=== PATIENT | female | born 1995 | race Caucasian/White ===

== ENCOUNTER 2020-11-30 18:30 | Emergency (ER) | payer OTHER ==
[2020-11-30] MEDS ORDERED: ONDANSETRON 4 MG/2 ML VIAL ONE (20:28)
[2020-11-30] MEDS ORDERED: ACETAMINOPHEN 500 MG TAB ONE (20:28)
[2020-11-30] MEDS ORDERED: FAMOTIDINE 20 MG/2 ML VIAL IV ONE (20:28)
[2020-11-30] MEDS ORDERED: NA CHLORIDE 0.9% 1,000 ML ONE (20:28)
[2020-11-30 20:46] LABS: Basophils % 0.3 % (0-1.3); Hematocrit 39.5 % (36.0-45.0); Lymphocytes % 29.7 % (15.3-44.8); MPV 8.7 fL (7.6-11.3); RBC Red Blood Cell Count 4.65 M/uL (3.86-4.86)
[2020-11-30 20:47] LABS: Protime INR 1.22
--- NOTE | 2020-11-30 20:48 | RAD REPORT ---
EXAM DESCRIPTION: Priscilla Single View11/30/2020 8:35 pm CLINICAL HISTORY: Cough COMPARISON: none FINDINGS: Mild bilateral pulmonary opacities are present. The heart is mildly enlarged IMPRESSION: Mild bilateral pulmonary opacities suspicious for pneumonia
[2020-11-30 20:56] LABS: ALT/SGPT 31 U/L (12-78); AST/SGOT 23 U/L (15-37); Albumin 3.6 g/dL (3.4-5.0); Alkaline Phosphatase 61 U/L (45-117); BUN Blood Urea Nitrogen 7 mg/dL (7-18); Bicarbonate 26 mmol/L (21-32); Bilirubin Direct 0.2 mg/dL (0-0.2); Bilirubin Total 0.5 mg/dL (0.2-1.0); Glucose Level 122 mg/dL (74-106); NT PRO-BNP 32 pg/mL (<125); Potassium 3.2 mmol/L (3.5-5.1); Protein, Total 8.4 g/dL (6.4-8.2); Sodium Level 139 mmol/L (136-145); Troponin (Emerg Dept Use Only) < 0.02 ng/mL (0.0-0.045)
[2020-11-30] MEDS ORDERED: METHYLPREDNISOLONE 125 MG INJ ONE (21:30)
[2020-11-30] MEDS ORDERED: POTASSIUM 25 MEQ EFFERV TAB ONE (21:30)
--- NOTE | 2020-11-30 21:57 | ER ---
Nurse's Notes [facility] Name: David Worthington Age: 25 yrs Sex: Female : 1995 Arrival Date: 11/30/2020 Time: 18:33 Bed 18 Private MD: Diagnosis: Other viral pneumonia;Nausea Presentation: 11/30 19:22 Chief complaint: Patient states: I was at [facility] this afternoon and got a covid swab. bp It came back positive. I came here to get re-checked. All they gave me was medication for nausea. I am having shortness of breath and abdominal. Coronavirus screen: Client presents with at least one sign or symptom that may indicate coronavirus-19. Standard/surgical mask placed on the client. Client reports previous positive COVID test result. Date of collection: November 30, 2020. Ebola Screen: No symptoms or risks identified at this time. Initial Sepsis Screen: Does the patient meet any 2 criteria? HR > 90 bpm. Yes Does the patient have a suspected source of infection? Yes: Productive cough/pneumonia. Risk Assessment: Do you want to hurt yourself or someone else? Patient reports no desire to harm self or others. Onset of symptoms was November 30, 2020. Transition of care: patient was not received from another setting of care. 19:22 Method Of Arrival: Ambulatory bp 19:22 Acuity: ANA 3 bp [employer]: 22:31 LMP N/A - ad5 Historical: - Allergies: 19:30 No Known Allergies; bp - Home Meds: 19:30 Albuterol Inhl [Active]; bp - PMHx: 19:30 Asthma; bp - PSHx: 19:30 None; bp - Immunization history:: Adult Immunizations up to date. - Social history:: Smoking status: Patient denies any tobacco usage or history of. Screenin:41 Abuse screen: Denies threats or abuse. Denies injuries from another. Nutritional ad5 screening: No deficits noted. Tuberculosis screening: No symptoms or risk factors identified. Fall Risk None identified. Assessment: 20:38 General: Appears ill, Behavior is calm, cooperative, appropriate for age. Pain: ad5 Complains of pain in body aches Pain currently is 5 out of 10 on a pain scale. Neuro: No deficits noted. Level of Consciousness is awake, alert, obeys commands, Oriented to person, place, time, situation, Appropriate for age Sustainability Communicator are equal bilaterally Moves all extremities. Gait is steady, Speech is normal, Facial symmetry appears normal. Cardiovascular: Reports fatigue, nausea, shortness of breath, vomiting, recent dx Covid, s/s since Tuesday this past week Denies chest pain, Heart tones S1 S2 present Capillary refill < 3 seconds Clubbing of nail beds is absent JVD is absent Patient's skin is warm and dry. Pulses are all present. Rhythm is regular. Respiratory: Reports shortness of breath at rest on exertion cough that is Airway is patent Trachea midline Respiratory effort is even, unlabored, Respiratory pattern is regular, symmetrical. GI: Bowel sounds present X 4 quads. Abd is soft and non tender Reports nausea, vomiting. : No deficits noted. EENT: No deficits noted. Derm: No deficits noted. Skin is pink, warm \T\ dry. Musculoskeletal: No deficits noted. 21:19 Reassessment: Patient appears in no apparent distress at this time. Patient and/or ad5 family updated on plan of care and expected duration. Pain level reassessed. Patient is alert, oriented x 3, equal unlabored respirations, skin warm/dry/pink. Patient states feeling better. Patient states symptoms have improved. Reassessment: Father remains at bedside. Pt denies needs at this time. Will continue to monitor. 22:03 Reassessment: Pt ambulated with portable pulse ox, O2 sat down to 90% on RA with HR to ad5 120. Provider notified. Pt reports improvement in s/s. Repositioned back into stretcher for comfort. Family remains at bedside. NAD noted, will continue to monitor. 22:30 Reassessment: Patient and/or family updated on plan of care and expected duration. Pain ad5 level reassessed. Patient is alert, oriented x 3, equal unlabored respirations, skin warm/dry/pink. Patient states feeling better. Patient states symptoms have improved. Vital Signs: 19:22 BP 139 / 75; Pulse 109; Resp 18; Temp 100.4(O); Pulse Ox 95% on R/A; Weight 108.86 kg bp (R); Height 5 ft. 9 in. (175.26 cm) (R); Pain 10/10; 20:40 BP 140 / 68; Pulse 102; Resp 18 S; Pulse Ox 94% on R/A; ad5 21:30 BP 134 / 68; Pulse 95; Resp 20 S; Pulse Ox 94% on R/A; ad5 22:04 Pulse 120; Resp 21 S; Pulse Ox 90% on R/A; ad5 22:30 BP 137 / 72; Pulse 101; Resp 20 S; Pulse Ox 94% on R/A; Pain 3/10; ad5 19:22 Body Mass Index 35.44 (108.86 kg, 175.26 cm) bp 22:04 ambulatory pulse ox per order, pt tolerated well ad5 ED Course: 18:33 Patient arrived in ED. ds1 19:28 Triage completed. bp 19:30 Arm band placed on right wrist. bp 19:48 Tino Rea PA is PHCP. cp 19:48 Tino Luther MD is Attending Physician. cp 19:53 Mark Webber is Primary Nurse. ad5 20:31 Basic Metabolic Panel Sent. ad5 20:35 XRAY Chest (1 view) In Process Unspecified. EDMS 20:41 Patient has correct armband on for positive identification. Bed in low position. Call ad5 light in reach. Side rails up X2. Adult w/ patient. nurse monitoring on. Pulse ox on. NIBP on. Door closed. Noise minimized. Warm blanket given. 20:41 No provider procedures requiring assistance completed. Initial lab(s) drawn, by me, ad5 sent to lab. Inserted saline lock: 20 gauge in right antecubital area, using aseptic technique. 22:27 Leoncio Mcmanus MD is Attending Physician. cp 22:31 IV discontinued, intact, bleeding controlled, No redness/swelling at site. Pressure ad5 dressing applied. Administered Medications: 20:31 Drug: Zofran (Ondansetron) 4 mg Route: IVP; Site: right antecubital; ad5 21:18 Follow up: Response: No adverse reaction; Nausea is decreased ad5 20:31 Drug: Pepcid (famotidine) 20 mg Route: IVP; Site: right antecubital; ad5 21:18 Follow up: Response: No adverse reaction; Nausea is decreased ad5 20:36 Drug: Tylenol 1000 mg Route: PO; ad5 20:36 Drug: NS 0.9% 1000 ml Route: IV; Rate: 1 bolus; Site: right antecubital; ad5 22:00 Follow up: IV Status: Completed infusion; IV Intake: 1000ml ad5 21:17 Drug: SOLU-Medrol (methylPrednisoLONE) 125 mg Route: IVP; Site: right antecubital; ad5 21:53 Follow up: Response: No adverse reaction ad5 22:06 Follow up: Response: No adverse reaction ad5 21:17 Drug: Potassium Effervescent Tablet 50 mEq Route: PO; ad5 21:53 Follow up: Response: No adverse reaction ad5 22:04 Follow up: Response: No adverse reaction ad5 22:04 Drug: Tessalon Perle (benzonatate) 200 mg Route: PO; ad5 Intake: 22:00 IV: 1000ml; Total: 1000ml. ad5 Outcome: 21:56 Discharge ordered by MD. cp 22:31 Discharged to home via wheelchair, with family. ad5 22:31 Condition: stable 22:31 Discharge instructions given to patient, family, Instructed on discharge instructions, follow up and referral plans. medication usage, Demonstrated understanding of instructions, follow-up care, medications. 22:32 Patient left the ED. ad5 Signatures: Dispatcher [employer] [facility] Leanne Leal dsTino Astorga PA PA cp Peltier, Brian, RN RN Mark Syed ad5
--- NOTE | 2020-11-30 21:57 | EDPHYS ---
Physician Documentation [facility] Name: David Worthington Age: 25 yrs Sex: Female : 1995 Arrival Date: 11/30/2020 Time: 18:33 Bed 18 Private MD: ED Physician Leoncio Mcmanus HPI: 11/30 20:10 This 25 yrs old Female presents to ER via Ambulatory with complaints of Covid cp +-Cough, Fever. 20:10 The patient has shortness of breath with light activity. cp 20:10 Onset: The symptoms/episode began/occurred gradually, 6 day(s) ago. Associated signs cp and symptoms: Pertinent positives: productive cough, fever, nausea, vomiting, Pertinent negatives: chest pain. Severity of symptoms: in the emergency department the symptoms are unchanged despite home interventions. 20:10 Patient reports being seen at [facility] earlier today and testing positive for cp COVID-19. Patient reports she is currently taking prescribed Medrol dose barrie and Z-barrie. [employer]: 22:31 LMP N/A - ad5 Historical: - Allergies: 19:30 No Known Allergies; bp - Home Meds: 19:30 Albuterol Inhl [Active]; bp - PMHx: 19:30 Asthma; bp - PSHx: 19:30 None; bp - Immunization history:: Adult Immunizations up to date. - Social history:: Smoking status: Patient denies any tobacco usage or history of. ROS: 20:15 Constitutional: Positive for fever, poor PO intake. cp 20:15 Eyes: Negative for injury, pain, redness, and discharge. cp 20:15 Cardiovascular: Negative for chest pain, edema, palpitations. cp 20:15 ENT: Negative for ear pain, sore throat, difficulty swallowing, difficulty handling cp secretions. 20:15 Respiratory: Positive for cough, "sounds productive", shortness of breath, on exertion. Negative for wheezing. 20:15 Abdomen/GI: Positive for abdominal pain, nausea and vomiting, Negative for diarrhea, constipation. 20:15 Back: Negative for radiated pain. 20:15 Neuro: Negative for altered mental status, headache, weakness. 20:15 All other systems are negative. Exam: 20:20 Constitutional: The patient appears in no acute distress, alert, awake, cp non-diaphoretic, non-toxic, well developed, well nourished, obese. 20:20 Head/Face: Normocephalic, atraumatic. cp 20:20 Eyes: Periorbital structures: appear normal, Conjunctiva: normal, no exudate, no injection, Sclera: no appreciated abnormality, Lids and lashes: appear normal, bilaterally. 20:20 ENT: External ear(s): are unremarkable, Nose: is normal, Mouth: Lips: moist, Oral mucosa: moist, Posterior pharynx: Airway: no evidence of obstruction, patent. 20:20 Neck: ROM/movement: is normal, is supple, no meningismus, no nuchal rigidity. 20:20 Chest/axilla: Inspection: normal, Palpation: is normal, no crepitus, no tenderness. 20:20 Cardiovascular: Rate: tachycardic, Rhythm: regular, Edema: is not appreciated, JVD: is not appreciated. 20:20 Respiratory: the patient does not display signs of respiratory distress, Respirations: labored breathing, is not present, intercostal retractions, are absent, splinting, is not noted, tachypnea, is not appreciated, Breath sounds: bronchial sounds, that are mild, are heard diffusely, decreased breath sounds, are not appreciated, stridor, is not appreciated, wheezing: is not appreciated. 20:20 Abdomen/GI: Inspection: abdomen appears normal, Bowel sounds: active, all quadrants, Palpation: soft, in all quadrants, mild abdominal tenderness, in all quadrants. 20:20 Back: pain, is absent, ROM is normal. 20:22 ECG was reviewed by the Attending Physician. cp Vital Signs: 19:22 BP 139 / 75; Pulse 109; Resp 18; Temp 100.4(O); Pulse Ox 95% on R/A; Weight 108.86 kg bp (R); Height 5 ft. 9 in. (175.26 cm) (R); Pain 10/10; 20:40 BP 140 / 68; Pulse 102; Resp 18 S; Pulse Ox 94% on R/A; ad5 21:30 BP 134 / 68; Pulse 95; Resp 20 S; Pulse Ox 94% on R/A; ad5 22:04 Pulse 120; Resp 21 S; Pulse Ox 90% on R/A; ad5 22:30 BP 137 / 72; Pulse 101; Resp 20 S; Pulse Ox 94% on R/A; Pain 3/10; ad5 19:22 Body Mass Index 35.44 (108.86 kg, 175.26 cm) bp 22:04 ambulatory pulse ox per order, pt tolerated well ad5 MDM: 19:49 Patient medically screened. cp 20:30 Differential diagnosis: asthma, pneumonia, pulmonary edema, Pulmonary Embolism Sepsis. cp 21:55 Data reviewed: vital signs, nurses notes, lab test result(s), EKG, radiologic studies, cp plain films. 21:55 Test interpretation: by ED physician or midlevel provider: ECG, plain radiologic cp studies. Counseling: I had a detailed discussion with the patient and/or guardian regarding: the historical points, exam findings, and any diagnostic results supporting the discharge/admit diagnosis, lab results, radiology results, to return to the emergency department if symptoms worsen or persist or if there are any questions or concerns that arise at home. Response to treatment: the patient's symptoms have markedly improved after treatment. 21:55 ED course: VSS. Patient resting comfortably in exam room. Patient appears non-toxic and cp no signs of respiratory distress. Will discharge to home for continued monitoring . 05 20:06 Order name: Basic Metabolic Panel cp 11/30 20:06 Order name: CBC with Diff cp / 21:41 Interpretation: Normal except: WBC 3.20; MN% 15.7. cp 05/ 20:06 Order name: LFT's; Complete Time: 20:57 cp /09 21:41 Interpretation: Normal except: TP 8.4; GLOB 4.8; A/G 0.8. cp / 20:06 Order name: Magnesium; Complete Time: 20:57 cp 05/09 20:06 Order name: NT PRO-BNP; Complete Time: 20:57 cp / 20:06 Order name: PT-INR; Complete Time: 20:57 cp / 20:06 Order name: Troponin (emerg Dept Use Only); Complete Time: 20:57 cp / 20:06 Order name: XRAY Chest (1 view); Complete Time: 20:57 cp / 20:06 Order name: CRP; Complete Time: 20:57 cp / 20:06 Order name: D-Dimer; Complete Time: 20:57 cp / 20:06 Order name: Basic Metabolic Panel; Complete Time: 20:57 EDMS 11/30 21:41 Interpretation: Normal except: K 3.2; GLUC 122; GFR 75; CA 8.4. cp 11/30 20:54 Order name: Manual Differential EDMS 11/30 20:04 Order name: Urine Dipstick-Ancillary (obtain specimen) cp 11/30 20:04 Order name: Urine Test (obtain specimen) cp 11/30 20:06 Order name: EKG; Complete Time: 20:07 cp 11/30 20:06 Order name: Cardiac monitoring; Complete Time: 20:36 cp 11/30 20:06 Order name: EKG - Nurse/Tech; Complete Time: 20:37 cp 11/30 20:06 Order name: IV Saline Lock; Complete Time: 20:37 cp 11/30 20:06 Order name: Labs collected and sent; Complete Time: 20:37 cp 11/30 20:06 Order name: O2 Per Protocol; Complete Time: 20:37 cp 11/30 20:06 Order name: O2 Sat Monitoring; Complete Time: 20:37 cp 11/30 21:05 Order name: Misc. Order: ambulate patient with pulse ox; Complete Time: 22:04 cp 11/30 21:51 Order name: PO challenge; Complete Time: 21:53 cp EC:22 Rate is 106 beats/min. Rhythm is regular. CA interval is normal. QRS interval is cp normal. QT interval is normal. T waves are Inverted in lead III. Interpreted by me. Reviewed by me. Administered Medications: 20:31 Drug: Zofran (Ondansetron) 4 mg Route: IVP; Site: right antecubital; ad5 21:18 Follow up: Response: No adverse reaction; Nausea is decreased ad5 20:31 Drug: Pepcid (famotidine) 20 mg Route: IVP; Site: right antecubital; ad5 21:18 Follow up: Response: No adverse reaction; Nausea is decreased ad5 20:36 Drug: Tylenol 1000 mg Route: PO; ad5 20:36 Drug: NS 0.9% 1000 ml Route: IV; Rate: 1 bolus; Site: right antecubital; ad5 22:00 Follow up: IV Status: Completed infusion; IV Intake: 1000ml ad5 21:17 Drug: SOLU-Medrol (methylPrednisoLONE) 125 mg Route: IVP; Site: right antecubital; ad5 21:53 Follow up: Response: No adverse reaction ad5 22:06 Follow up: Response: No adverse reaction ad5 21:17 Drug: Potassium Effervescent Tablet 50 mEq Route: PO; ad5 21:53 Follow up: Response: No adverse reaction ad5 22:04 Follow up: Response: No adverse reaction ad5 22:04 Drug: Tessalon Perle (benzonatate) 200 mg Route: PO; ad5 Disposition: 11/30/20 21:56 Discharged to Home. Impression: Other viral pneumonia, Nausea. - Condition is Stable. - Discharge Instructions: COVID-19. - Prescriptions for ivermectin 3 mg Oral tablet - take 6 tablet by ORAL route every other day x1 dose; 12 tablet. Tessalon Perles 100 mg Oral Capsule - take 2 capsule by ORAL route every 8 hours As needed; 30 capsule. Albuterol Sulfate 2.5 mg /3 mL (0.083 %) Inhalation Solution for Nebulization - inhale 1 unit by NEBULIZATION route every 8 hours As needed; 1 box. Prednisone 20 mg Oral Tablet - take 2 tablet by ORAL route once daily for 5 days then take 1 tablet daily by mouth for 5 days; 15 tablet. Zofran 4 mg Oral Tablet - take 1 tablet by ORAL route every 12 hours As needed; 20 tablet. - Medication Reconciliation Form, Thank You Letter, Antibiotic Education, Prescription Opioid Use form. - Follow up: Private Physician; When: 1 - 2 days; Reason: Worsening of condition. - Problem is new. - Symptoms have improved. Addendum: 12/16/2020 05:10 Co-signature as Attending Physician, Leoncio Mcmanus MD I agree with the assessment and t w4 plan of care. Signatures: Dispatcher [employer] [facility] Tino Rea PA PA cp Lukas Juarez RN RN Leoncio Avalos MD MD [id number] Mark Webber ad5 Corrections: (The following items were deleted from the chart) 11/30 21:41 21:41 Normal except: K 3.2; GLUC 122; GFR 75. cp cp 21:59 21:56 11/30/2020 21:56 Discharged to Home. Impression: Other viral pneumonia. Condition cp is Stable. Forms are Medication Reconciliation Form, Thank You Letter, Antibiotic Education, Prescription Opioid Use. Follow up: Private Physician; When: 1 - 2 days; Reason: Worsening of condition. Problem is new. Symptoms have improved. cp 22:32 21:59 11/30/2020 21:56 Discharged to Home. Impression: Other viral pneumonia; Nausea. ad5 Condition is Stable. Discharge Instructions: COVID-19. Prescriptions for ivermectin 3 mg Oral tablet - take 6 tablet by ORAL route every other day x1 dose; 12 tablet, Tessalon Perles 100 mg Oral Capsule - take 2 capsule by ORAL route every 8 hours As needed; 30 capsule, Albuterol Sulfate 2.5 mg /3 mL (0.083 %) Inhalation Solution for Nebulization - inhale 1 unit by NEBULIZATION route every 8 hours As needed; 1 box, Prednisone 20 mg Oral Tablet - take 2 tablet by ORAL route once daily for 5 days then take 1 tablet daily by mouth for 5 days; 15 tablet, Zofran 4 mg Oral Tablet - take 1 tablet by ORAL route every 12 hours As needed; 20 tablet. and Forms are Medication Reconciliation Form, Thank You Letter, Antibiotic Education, Prescription Opioid Use. Follow up: Private Physician; When: 1 - 2 days; Reason: Worsening of condition. Problem is new. Symptoms have improved. cp
[2020-11-30] MEDS ORDERED: BENZONATATE 100 MG CAP PO ONE (22:14)
[2020-11-30 22:36] LABS: Blood Morphology Comment NOT SEEN (NOT SEEN); Platelet Estimate ADEQ
[2020-11-30 23:00] VITALS: TEMP 100.4
[2020-11-30 23:06] VITALS: BP 137/72; O2SAT 94
== END 2020-11-30 22:32 | disposition home or self-care (01) ==
LOC: ER 18:30
DX: J12.89 Other viral pneumonia (principal); J45.909 Unspecified asthma, uncomplicated
CPT/HCPCS: 96361; 93005; 85025; 80048; 36415; 83735; 85610; 85379; 80076; 84484; 83880; 86140; 71045; 96375; 96374; 99284; J7030; J2930; J2405

== ENCOUNTER 2020-12-02 08:40 | Inpatient (IN) | payer OTHER ==
[2020-12-02 09:45] LABS: Basophils % 0.2 % (0-1.3); Hematocrit 39.9 % (36.0-45.0); Lymphocytes % 16.3 % (15.3-44.8); MPV 8.2 fL (7.6-11.3); RBC Red Blood Cell Count 4.69 M/uL (3.86-4.86)
[2020-12-02 09:53] LABS: Protime INR 1.17
--- NOTE | 2020-12-02 10:35 | RAD REPORT ---
EXAM DESCRIPTION: Priscilla Single View12/02/2020 9:50 am CLINICAL HISTORY: Shortness of breath COMPARISON: Nov 30 2020 FINDINGS: Mild bilateral pulmonary opacities without significant change. Heart appears mildly enlarged IMPRESSION: Mild bilateral pulmonary opacities probably pneumonia
[2020-12-02 10:59] LABS: ALT/SGPT 35 U/L (12-78); AST/SGOT 21 U/L (15-37); Alkaline Phosphatase 57 U/L (45-117); BUN Blood Urea Nitrogen 8 mg/dL (7-18); Bicarbonate 27 mmol/L (21-32); Glucose Level 117 mg/dL (74-106); Potassium 3.2 mmol/L (3.5-5.1); Sodium Level 142 mmol/L (136-145)
[2020-12-02 11:00] LABS: Albumin 3.5 g/dL (3.4-5.0); Bilirubin Direct 0.2 mg/dL (0-0.2); Bilirubin Total 0.5 mg/dL (0.2-1.0); Protein, Total 8.2 g/dL (6.4-8.2)
[2020-12-02 11:01] LABS: Lipase 122 U/L (73-393)
[2020-12-02 11:28] LABS: Ferritin 70.4 ng/mL (8-388)
[2020-12-02 11:31] LABS: Troponin (Emerg Dept Use Only) < 0.02 ng/mL (0.0-0.045)
--- NOTE | 2020-12-02 11:56 | EDPHYS ---
Physician Documentation [facility] Name: David Worthington Age: 25 yrs Sex: Female : 1995 Arrival Date: 12/02/2020 Time: 08:40 Bed 24 Private MD: ED Physician Gerard Mcarthur HPI: 12/02 09:32 This 25 yrs old Female presents to ER via Ambulatory with complaints of low kb O2. 09:32 The patient has shortness of breath at rest, with light activity. Onset: The kb symptoms/episode began/occurred 8 day(s) ago, and became worse today. Duration: The symptoms are continuous. The patient's shortness of breath is aggravated by exertion. Associated signs and symptoms: Pertinent positives: non-productive cough, fever. Severity of symptoms: At their worst the symptoms were moderate in the emergency department the symptoms are unchanged. The patient has not experienced similar symptoms in the past. The patient has been recently seen at the [facility] Emergency Department. Pt reports COVID symptoms started last Tuesday, tested positive here. Came in today for decreased oxygen saturation and shortness of breath. States oxygen decreased to 84% when walking today and goes back up to 90-93% at rest. 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 - Social history:: Smoking status: Patient denies any tobacco usage or history of. ROS: 09:30 ENT: Negative for injury, pain, and discharge, Cardiovascular: Negative for chest pain, kb palpitations, and edema, Abdomen/GI: Negative for abdominal pain, nausea, vomiting, diarrhea, and constipation. 09:30 Constitutional: Positive for body aches, chills, fatigue, fever, malaise. 09:30 Respiratory: Positive for cough, dyspnea on exertion, shortness of breath. 09:30 All other systems are negative. Exam: 09:30 Constitutional: This is a well developed, well nourished patient who is awake, alert, kb and in no acute distress. Head/Face: Normocephalic, atraumatic. ENT: Moist Mucous membranes Cardiovascular: Regular rate and rhythm with a normal S1 and S2. No gallops, murmurs, or rubs. No pulse deficits. Respiratory: Respirations even and unlabored. No increased work of breathing, no retractions or nasal flaring. Abdomen/GI: Soft, non-tender. No distention Skin: Warm, dry with normal turgor. Normal color. MS/ Extremity: Pulses equal, no cyanosis. Neurovascular intact. Full, normal range of motion. Neuro: Awake and alert, GCS 15, oriented to person, place, time, and situation. Moves all extremities. Normal gait. Psych: Awake, alert, with orientation to person, place and time. Behavior, mood, and affect are within normal limits. Vital Signs: 08:41 BP 99 / 60; Pulse 102; Resp 20 S; Temp 99.3(O); Pulse Ox 92% on R/A; Weight 108.86 kg aa5 (R); Height 5 ft. 9 in. (175.26 cm) (R); Pain 5/10; 10:31 BP 98 / 74; Pulse 90; Resp 18; Pulse Ox 97% 2 lpm ; tr6 11:48 Pulse Ox 93% ; tr6 08:41 Body Mass Index 35.44 (108.86 kg, 175.26 cm) aa5 11:48 RA while ambulating. pt went as low at 86%, slowly came up to 88% and maintained there. tr6 pt placed on 2L NC and came up to 97% MDM: 09:00 Patient medically screened. kb 09:30 Data reviewed: vital signs, nurses notes. Data interpreted: Pulse oximetry: on room air kb is 92 %. Interpretation: acceptable. 11:52 Counseling: I had a detailed discussion with the patient and/or guardian regarding: the kb historical points, exam findings, and any diagnostic results supporting the discharge/admit diagnosis, lab results, radiology results, the need for further work-up and treatment in the hospital. ED course: Pt had increased work of breathing and desaturation with ambulation to 86%. Pt placed on oxygen and sat came up to 97%. 11:59 Physician consultation: Marisabel VÁSQUEZ was contacted at 11:59, regarding kb admission, to the medical/surgical unit. and will see patient in ED. 12/02 09:00 Order name: Blood Culture Adult (2) kb 12/02 09:00 Order name: BMP; Complete Time: 11:32 kb 12/02 09:00 Order name: C-Reactive Protein; Complete Time: 11:32 kb 12/02 09:00 Order name: CBC with Diff; Complete Time: 09:54 kb 12/02 09:00 Order name: D-Dimer; Complete Time: 10:12 kb 12/02 09:00 Order name: Ferritin; Complete Time: 11:32 kb 12/02 09:00 Order name: Lactate; Complete Time: 10:12 kb 12/02 09:00 Order name: LFT's; Complete Time: 11:32 kb 12/02 09:00 Order name: Lipase; Complete Time: 11:32 kb 12/02 09:00 Order name: Procalcitonin; Complete Time: 10:39 kb 12/02 09:00 Order name: PT-INR; Complete Time: 10:12 kb 12/02 09:00 Order name: Ptt, Activated; Complete Time: 10:12 kb 12/02 09:00 Order name: Troponin (emerg Dept Use Only); Complete Time: 11:32 kb 12/02 09:00 Order name: CXR XRAY; Complete Time: 10:37 kb 12/02 18:47 Order name: Potassium EDMS 12/03 04:09 Order name: CBC with Automated Diff EDMS 12/03 06:50 Order name: Comprehensive Metabolic Panel EDMS 12/03 06:50 Order name: C-Reactive Protein EDMS 12/03 06:50 Order name: Magnesium EDMS 12/03 06:50 Order name: Ferritin EDMS 12/04 04:37 Order name: CBC with Automated Diff EDMS 12/04 04:49 Order name: Basic Metabolic Panel EDMS 12/04 04:49 Order name: C-Reactive Protein EDMS 12/04 04:49 Order name: Magnesium EDMS 12/04 04:49 Order name: Ferritin EDMS 12/04 04:52 Order name: Procalcitonin EDMS 12/04 05:56 Order name: Urinalysis EDMS 12/04 06:06 Order name: Urine Microscopic Only EDMS 12/04 13:31 Order name: Sputum Culture EDIL 12/02 09:00 Order name: EKG; Complete Time: 09:01 kb 12/02 09:00 Order name: Cardiac monitoring; Complete Time: :27 kb 12/02 09:00 Order name: Droplet/Contact Precautions; Complete Time: 09:27 kb 12/02 09:00 Order name: EKG - Nurse/Tech; Complete Time: 10:21 kb 12/02 09:00 Order name: IV Start; Complete Time: :28 kb 12/02 09:00 Order name: Labs collected and sent; Complete Time: :28 kb 12/02 09:00 Order name: O2 Per Protocol; Complete Time: :28 kb 12/02 09:00 Order name: O2 Sat Monitoring; Complete Time: : kb 12/02 11:33 Order name: Misc. Order: ambulate pt and check o2 sat; Complete Time: 11:42 kb 12/02 12:42 Order name: Chest For Pe Angio; Complete Time: 13:21 EDIL 12/04 07:30 Order name: [facility] Administered Medications: 11:46 Drug: Potassium Chloride 40 mEq Route: PO; tr6 22:12 Not Given (Physician Discretion): SOLU-Medrol (methylPrednisoLONE) 125 mg IVP once iw Disposition: 12/04 22:49 Co-signature as Attending Physician, Gerard Mcarthur MD. rn Disposition: 12/02/20 11:56 Hospitalization ordered by Gualberto Mcarthur for Observation. Preliminary diagnosis are Coronavirus infection, unspecified, Viral pneumonia, unspecified, Hypoxia. - Bed requested for Intensive Care Unit. - Status is Observation. bb - Condition is Stable. - Problem is new. - Symptoms are unchanged. Signatures: Dispatcher [employer] EDIL Marisabel Tam, ENGINEERING SECRETARY-C Aylin Blanco RN RN bb Gerard Mcarthur MD MD rn Martinez, Eric em1 Betty Maciel RN RN aa5 Rhoda Lund RN RN tr6 Abena Keenan RN iw Corrections: (The following items were deleted from the chart) 12/02 16:44 11:56 Hospitalization Ordered by Gualberto Mcarthur MD for Observation. Preliminary aa5 diagnosis is Coronavirus infection, unspecified; Viral pneumonia, unspecified; Hypoxia. Bed requested for Telemetry/MedSurg (observation). Status is Observation. Condition is Stable. Problem is new. Symptoms are unchanged. kb 12/04 18:38 12/02 16:44 12/02/2020 11:56 Hospitalization Ordered by Gualberto Mcarthur MD for em1 Observation. Preliminary diagnosis is Coronavirus infection, unspecified; Viral pneumonia, unspecified; Hypoxia. Bed requested for [facility] ER HOLD. Status is Observation. Condition is Stable. Problem is new. Symptoms are unchanged. aa5 12/04 19:56 18:38 12/02/2020 11:56 Hospitalization Ordered by Gualberto Mcarthur MD for Observation. bb Preliminary diagnosis is Coronavirus infection, unspecified; Viral pneumonia, unspecified; Hypoxia. Bed requested for Intensive Care Unit. Status is Observation. Condition is Stable. Problem is new. Symptoms are unchanged. em1
--- NOTE | 2020-12-02 11:56 | ER ---
Nurse's Notes [facility] Name: David Worthington Age: 25 yrs Sex: Female : 1995 Arrival Date: 12/02/2020 Time: 08:40 Bed 24 Private MD: Diagnosis: Coronavirus infection, unspecified;Viral pneumonia, unspecified;Hypoxia Presentation: 12/02 08:41 Chief complaint: Patient states: "I came here on Tuesday and they diagnosed me with aa5 COVID-19 Pneumonia but I am short of breath, my oxygen has been low and I have chest pain". Pt reports O2 sat at home 93% to 96%. 08:41 Coronavirus screen: Client presents with at least one sign or symptom that may indicate aa5 coronavirus-19. Standard/surgical mask placed on the client. Provider contacted for isolation considerations. Client reports previous positive COVID test result. Ebola Screen: Patient negative for fever greater than or equal to 101.5 degrees Fahrenheit, and additional compatible Ebola Virus Disease symptoms. Initial Sepsis Screen: Does the patient meet any 2 criteria? No. Patient's initial sepsis screen is negative. Does the patient have a suspected source of infection? No. Patient's initial sepsis screen is negative. Risk Assessment: Do you want to hurt yourself or someone else? Patient reports no desire to harm self or others. Onset of symptoms was November 2020. 08:41 Acuity: ANA 3 aa5 08:41 Method Of Arrival: Ambulatory aa5 Triage Assessment: 09:26 General: Appears in no apparent distress. Behavior is calm, cooperative, appropriate tr6 for age. Pain: Denies pain. 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 - Social history:: Smoking status: Patient denies any tobacco usage or history of. Screenin:26 Abuse screen: Denies threats or abuse. Denies injuries from another. Nutritional tr6 screening: No deficits noted. Tuberculosis screening: No symptoms or risk factors identified. Fall Risk None identified. Assessment: 09:26 General: Appears in no apparent distress. Behavior is calm, cooperative, appropriate tr6 for age. Pain: Denies pain. Neuro: No deficits noted. Cardiovascular: No deficits noted. Respiratory: Airway is patent Trachea midline Respiratory effort is even, unlabored, relaxed, O2 90% on RA. pt placed on 2L NC. 09:43 Reassessment: bedside ctx. tr6 10:30 Reassessment: No changes from previously documented assessment. Patient and/or family tr6 updated on plan of care and expected duration. Pain level reassessed. Patient is alert, oriented x 3, equal unlabored respirations, skin warm/dry/pink. Patient denies pain at this time. Vital Signs: 08:41 BP 99 / 60; Pulse 102; Resp 20 S; Temp 99.3(O); Pulse Ox 92% on R/A; Weight 108.86 kg aa5 (R); Height 5 ft. 9 in. (175.26 cm) (R); Pain 5/10; 10:31 BP 98 / 74; Pulse 90; Resp 18; Pulse Ox 97% 2 lpm ; tr6 11:48 Pulse Ox 93% ; tr6 08:41 Body Mass Index 35.44 (108.86 kg, 175.26 cm) aa5 11:48 RA while ambulating. pt went as low at 86%, slowly came up to 88% and maintained there. tr6 pt placed on 2L NC and came up to 97% ED Course: 08:40 Patient arrived in ED. am2 08:41 Arm band placed on Patient placed in an exam room, on a stretcher. aa5 08:58 Triage completed. aa5 09:00 Marisabel Tam FNP-C is PHCP. kb 09:00 Gerard Mcarthur MD is Attending Physician. kb 09:15 Radiology exam delayed due to nurse in room. md1 09:26 Patient has correct armband on for positive identification. Bed in low position. Call tr6 light in reach. Side rails up X 1. Adult w/ patient. pts father at [facility]. 09:26 No provider procedures requiring assistance completed. tr6 09:50 CXR XRAY In Process Unspecified. EDMS 11:55 Gualberto Mcarthur MD is Hospitalizing Provider. kb 12/04 19:32 Report given to Keyla RAMOS for room 5. bb 19:34 Patient admitted, IV remains in place. bb Administered Medications: 12/02 11:46 Drug: Potassium Chloride 40 mEq Route: PO; tr6 22:12 Not Given (Physician Discretion): SOLU-Medrol (methylPrednisoLONE) 125 mg IVP once iw Outcome: 11:56 Decision to Hospitalize by Provider. kb 12/04 19:33 Admitted to Med/surg accompanied by tech, via wheelchair, room 5, with chart, Report bb called to Keyla RAMOS Instructed on the need for admit. 19:34 Condition: stable bb 19:56 Patient left the ED. bb Signatures: Dispatcher [employer] EDMS Marisabel Tam, SAFETY COUNCIL DIRECTOR-C SAFETY COUNCIL DIRECTOR-CkAylin Streeter, RN RN bb Betty Maciel, RN RN aa5 Margaux Ellington am2 Vandana Guerrero md1 Rhoda Lund, RICHARD RN tr6 Abena Keenan RN iw
[2020-12-02] MEDS ORDERED: POTASSIUM CL SA 10 MEQ TAB PO ONE ×5 (12:05→20:11)
--- NOTE | 2020-12-02 12:49 | P.HP ---
Certification for Inpatient Patient admitted to: Observation With expected LOS: <2 Midnights Practitioner: I am a practitioner with admitting privileges, knowledge of patient current condition, hospital course, and medical plan of care. Services: Services provided to patient in accordance with Admission requirements found in Title 42 Section 412.3 of the Code of Federal Regulations Patient History Date of Service: 12/02/20 Reason for admission: Hypoxia, COVID-19 pneumonia History of Present Illness: 25yo F, PMH: asthma, recently diagnosed with COVID-19 pneumonia, presents to ED due to worsening dyspnea on exertion. She was recently diagnosed in ED 2 days ago and discharged home with prednisone, ivermectin, albuterol inhaler, tessalon perles. She noted worsening SpO2 down to 84% at home with minimal exertion. Denies nausea/vomiting/diarrhea, no chest pain, no edema. Labwork rather unremarkable in ED. CXR with b/l opacitices consistent with COVID-19 pneumonia. SpO2 down to 86% with minimal ambulation in the ED. - Past Medical/Surgical History -: asthma Past Surgical History: Patient denies surgical history - Family History Family History: Reviewed- Non-Contributory (denies family history) - Social History Smoking Status: Never smoker Alcohol use: No CD- Drugs: No Place of Residence: Home Physical Examination - Physical Exam General: Alert, Oriented x3, Mild distress HEENT: Mucous membr. moist/pink, EOMI Neck: Supple, JVD not distended Respiratory: Other (mild labored respirations on 2 LNC) Cardiovascular: No edema, Regular rate/rhythm, No murmurs Gastrointestinal: Soft and benign, Non-distended, No tenderness Musculoskeletal: No erythema, No tenderness Integumentary: No rashes Neurological: Normal speech, Normal affect - Studies Laboratory Data (last 24 hrs) 12/02/20 09:22: PT 13.5 H, INR 1.17, APTT 24.6 12/02/20 09:22: WBC 6.30 D, Hgb 13.4, Hct 39.9, Plt Count 195 D 12/02/20 09:22: Sodium 142, Potassium 3.2 L, BUN 8, Creatinine 0.75, Glucose 117 H, Total Bilirubin 0.5, AST 21, ALT 35, Alkaline Phosphatase 57, Lipase 122 Assessment and Plan - Advance Directives Does patient have a Living Will: No Does patient have a Durable POA for Healthcare: No Physician Review Additional Text: Problem List Acute hypoxemic respiratory failure secondary to COVID-19 pneumonia Asthma -IV Solumedrol, vitamin supplementation, albuterol, ivermectin -wean O2 as needed -check CT to r/o PE -Lovenox ordered -daily room air sats -patient otherwise without other medical issues -desaturates mostly with ambulation VTE: lovenox Code: full dispo: anticipate dc home in 24 hrs, will likely need home O2 Time Spent Managing Pts Care (In Minutes): 60
--- NOTE | 2020-12-02 13:15 | RAD REPORT ---
EXAM DESCRIPTION: CT - Chest For Pe Angio - 12/02/2020 12:55 pm CLINICAL HISTORY: r/o PE, COVID, hypoxia COMPARISON: Chest Single View dated 12/02/2020 TECHNIQUE: Dynamically enhanced 3 mm thick images of the chest were obtained during administration o f approximately 150mL Isovue 370 IV contrast. Coronal and oblique MIP reconstruction images were gene rated and reviewed. Exam utilizes a protocol to evaluate the pulmonary arterial tree. All CT scans are performed using dose optimization technique as appropriate and may include automated exposure control or mA/KV adjustment according to patient size. FINDINGS: No pulmonary emboli are identified. The aorta as imaged shows no acute or suspicious finding. No pericardial thickening or effusion. Patient has mild to moderate severity peripheral ground-glass opacification in the upper and mid lung wilhelm. A more dense airspace opacification with air bronchogram formation seen in each posterior ugo ng base. No pleural effusion or pleural thickening. No cavitation or focal lung parenchymal mass les ions seen. No mediastinal or hilar suspicious masses. No chest wall masses or abnormal axillary lymphadenopathy. Cardiomegaly is present without pericardial thickening or effusion. IMPRESSION: No pulmonary emboli identified. Moderate severity bilateral COVID-19 pneumonia.
[2020-12-02 14:20] VITALS: BMI 35.4
[2020-12-02] MEDS ORDERED: PNEUMOCOCCAL VACCINE 0.5 ML IMVAC ONE (15:00)
[2020-12-02] MEDS: ASCORBIC ACID 500 MG TABLET PO SCH ×3 (15:50→20:03)
[2020-12-02] MEDS: ENOXAPARIN 40 MG/0.4 ML SQ SCH (15:51)
[2020-12-02] MEDS: GUAIFENESIN 600 MG SA TAB PO SCH ×3 (15:52→20:04)
[2020-12-02] MEDS ORDERED: ASCORBIC ACID 500 MG TABLET ONE ×2 (15:55→20:10)
[2020-12-02] MEDS ORDERED: ENOXAPARIN 40 MG/0.4 ML SQ ONE ×2 (15:56→16:02)
[2020-12-02] MEDS: POTASSIUM CL SA 10 MEQ TAB PO ONE ×2 (15:57)
[2020-12-02] MEDS ORDERED: NA CHLORIDE 0.9% 1,000 ML ONE (17:17)
[2020-12-02] MEDS: ALBUTEROL 2.5 MG/3 ML NEB SOL NEB PRN (17:22)
[2020-12-02] MEDS ORDERED: ALBUTEROL 2.5 MG/3 ML NEB SOL ONE (17:37)
--- NOTE | 2020-12-02 17:40 | EKG ---
Test Date: 2020-12-02 Test Time: 10:02:11 [place] Lather: JORDY MEASUREMENT RESULTS: Intervals: Rate: 93 WI: 138 QRSD: 92 QT: 358 QTc: 445 [place]: P: 35 WI: 138 QRS: 24 T: 0 INTERPRETIVE STATEMENTS: Normal sinus rhythm Cannot rule out Anterior infarct, age undetermined Abnormal ECG Compared to ECG 11/30/2020 20:16:58 Myocardial infarct finding now present Sinus tachycardia no longer present Electronically Signed On 12-02-20 17:39:58 CDT by Say Crook
[2020-12-02] MEDS: ACETAMINOPHEN 500 MG TAB PO PRN (17:44)
[2020-12-02] MEDS: FAMOTIDINE 20 MG TAB PO SCH (20:02)
[2020-12-02] MEDS: METHYLPREDNISOLONE 125 MG INJ IV SCH (20:08)
[2020-12-02] MEDS: THIAMINE 200 MG/2 ML INJ IVP SCH (20:08)
[2020-12-02] MEDS ORDERED: THIAMINE HCL 100 MG TABLET ONE (20:10)
[2020-12-02] MEDS ORDERED: METHYLPREDNISOLONE 40 MG INJ ONE (20:11)
[2020-12-02] MEDS ORDERED: FAMOTIDINE 20 MG TAB ONE (20:11)
[2020-12-02] MEDS ORDERED: THIAMINE 200 MG/2 ML INJ ONE (20:26)
[2020-12-03] MEDS: ACETAMINOPHEN 500 MG TAB PO PRN ×2 (03:46→19:42)
[2020-12-03 04:04] LABS: Basophils % 0.1 % (0-1.3); Hematocrit 38.4 % (36.0-45.0); Lymphocytes % 19.8 % (15.3-44.8); MPV 8.1 fL (7.6-11.3)
[2020-12-03] MEDS ORDERED: ACETAMINOPHEN 500 MG TAB ONE ×2 (04:04→19:48)
[2020-12-03] MEDS: BENZONATATE 100 MG CAP PO PRN ×2 (04:11→12:15)
[2020-12-03 06:45] LABS: ALT/SGPT 49 U/L (12-78); AST/SGOT 31 U/L (15-37); Albumin 3.3 g/dL (3.4-5.0); Alkaline Phosphatase 57 U/L (45-117); BUN Blood Urea Nitrogen 9 mg/dL (7-18); Bicarbonate 26 mmol/L (21-32); Bilirubin Total 0.5 mg/dL (0.2-1.0); Ferritin 72.9 ng/mL (8-388); Glucose Level 123 mg/dL (74-106); Magnesium 2.5 mg/dL (1.8-2.4); Potassium 4.1 mmol/L (3.5-5.1); Protein, Total 7.8 g/dL (6.4-8.2); Sodium Level 140 mmol/L (136-145)
[2020-12-03] MEDS ORDERED: IVERMECTIN 3 MG TABLET PO ONE (07:00)
[2020-12-03] MEDS: ALBUTEROL 2.5 MG/3 ML NEB SOL NEB PRN ×2 (07:46→20:35)
[2020-12-03] MEDS ORDERED: ALBUTEROL 2.5 MG/3 ML NEB SOL ONE ×2 (08:04→20:34)
[2020-12-03] MEDS: GUAIFENESIN 600 MG SA TAB PO SCH ×2 (08:05→19:43)
[2020-12-03] MEDS: ENOXAPARIN 40 MG/0.4 ML SQ SCH (08:06)
[2020-12-03] MEDS: FAMOTIDINE 20 MG TAB PO SCH ×2 (08:06→19:43)
[2020-12-03] MEDS: ASCORBIC ACID 500 MG TABLET PO SCH ×4 (08:06→19:43)
[2020-12-03] MEDS ORDERED: THIAMINE HCL 100 MG TABLET ONE (08:20)
[2020-12-03] MEDS ORDERED: ASCORBIC ACID 500 MG TABLET ONE ×4 (08:21→19:48)
[2020-12-03] MEDS ORDERED: ENOXAPARIN 40 MG/0.4 ML SQ ONE (08:21)
[2020-12-03] MEDS ORDERED: METHYLPREDNISOLONE 40 MG INJ ONE ×3 (08:21→19:49)
[2020-12-03] MEDS ORDERED: VITAMIN D 1000 UNIT TAB ONE ×2 (08:21→08:41)
[2020-12-03] MEDS ORDERED: FAMOTIDINE 20 MG TAB ONE ×3 (08:21→19:49)
[2020-12-03] MEDS: VITAMIN D 1000 UNIT TAB PO SCH (08:25)
[2020-12-03] MEDS: METHYLPREDNISOLONE 125 MG INJ IV SCH ×2 (08:25→19:44)
[2020-12-03] MEDS: THIAMINE 200 MG/2 ML INJ IVP SCH ×2 (08:25→19:43)
[2020-12-03] MEDS ORDERED: THIAMINE 200 MG/2 ML INJ ONE ×2 (08:42→19:48)
[2020-12-03] MEDS ORDERED: BENZONATATE 100 MG CAP PO ONE (11:54)
--- NOTE | 2020-12-03 12:02 | P.CNS ---
Date of Consult: 12/03/20 Reason for Consult: COVID penumonai Chief Complaint: Hypoxia, COVID-19 pneumonia History of Present Illness: Age 25 AW COVID penumonia, Worseing SOBOE. AW low O2 was on steroids and ivermectin Allergies No Known Allergies Allergy (Unverified 12/02/20 15:01) Home Medications: Benzonatate [Tessalon Perle] 100 mg PO Q8HP PRN 12/02/20 Ivermectin 3 mg PO M,W,F 12/02/20 Ondansetron [Zofran] 4 mg PO Q12H PRN 12/02/20 predniSONE [Prednisone] 40 mg PO DAILY 12/02/20 - Past Medical/Surgical History Diabetic: No -: asthma - Social History Alcohol use: No CD- Drugs: No Caffeine use: Yes Place of Residence: Home Physical Examination Temp Pulse Resp BP Pulse Ox 98.8 F 93 H 23 H 130/87 96 12/03/20 08:00 12/03/20 08:00 12/03/20 08:00 12/03/20 08:00 12/03/20 08:00 - Problems (1) 2019-nCoV acute respiratory disease Current Visit: Yes Status: Acute Plan: Patient is 25 years of age admitted with respiratory failure from sifuentes virus continue with present treatment with ivermectin steroids labs CT scans all reviewed no evidence of pulmonary embolism CT scan shows patchy bilateral infiltrate labs unremarkable inflammatory markers reviewed levels low
--- NOTE | 2020-12-03 17:11 | P.PN ---
Subjective Date of Service: 12/03/20 Chief Complaint: Hypoxia, COVID-19 pneumonia Subjective: Worsening (more dyspneic, tachypneic, and tachycardic today, CRP slightly more elevated. still on 2L NC, but SpO2 down to 92-94%, drops to 84% with minimal movement) Review of Systems 10-point ROS is otherwise unremarkable Physical Examination - Vital Signs Temperature: 98.5 F Blood Pressure: 120/58 Pulse: 90 Respirations: 25 Pulse Ox (%): 93 - Physical Exam General: Alert, Mild distress HEENT: Sclerae nonicteric Respiratory: Diminished, Other (labored respirations, tachypneic - 30s on 2 LNC while resting) Cardiovascular: No edema, Regular rate/rhythm (sinus tachycardia to 120s at times), Normal S1 S2 Gastrointestinal: Soft and benign, Non-distended, No tenderness Musculoskeletal: No erythema, No tenderness Integumentary: No rashes Neurological: Normal speech, Normal affect - Studies Laboratory Data (last 24 hrs) 12/03/20 03:40: Sodium 140, Potassium 4.1, BUN 9, Creatinine 0.61, Glucose 123 H, Magnesium 2.5 H D, Total Bilirubin 0.5, AST 31, ALT 49, Alkaline Phosphatase 57 12/03/20 03:40: WBC 4.80 D, Hgb 13.0, Hct 38.4, Plt Count 191 12/02/20 18:20: Potassium 3.5 Assessment & Plan Physician Review Additional Text: Problem List Acute hypoxemic respiratory failure secondary to COVID-19 pneumonia Asthma -IV Solumedrol, vitamin supplementation, albuterol, ivermectin -wean O2 as needed -CT with moderate b/l opacities, negative PE, continue lovenox -pt appears worse today, more tachypneic/hypoxic, only on 2L NC -given worsening of symptoms, will consult pulmonology. -pt not stable/well enough for discharge home today -CXR tomorrow VTE: lovenox Code: full dispo: worsening today, if improves / stable, anticipate dc home in 24-48 hrs, will likely need home O2 Time Spent Managing Pts Care (In Minutes): 35
[2020-12-03] MEDS ORDERED: GUAIFENESIN 600 MG SA TAB PO ONE (19:50)
[2020-12-04] MEDS: BENZONATATE 100 MG CAP PO PRN ×3 (03:44→21:15)
[2020-12-04] MEDS ORDERED: BENZONATATE 100 MG CAP PO ONE ×2 (04:02→10:18)
[2020-12-04 04:26] LABS: Basophils % 0.1 % (0-1.3); Hematocrit 39.2 % (36.0-45.0); Lymphocytes % 11.2 % (15.3-44.8); MPV 8.4 fL (7.6-11.3); RBC Red Blood Cell Count 4.58 M/uL (3.86-4.86)
[2020-12-04 04:48] LABS: BUN Blood Urea Nitrogen 11 mg/dL (7-18); Bicarbonate 25 mmol/L (21-32); Ferritin 72.9 ng/mL (8-388); Glucose Level 134 mg/dL (74-106); Magnesium 2.5 mg/dL (1.8-2.4); Potassium 3.6 mmol/L (3.5-5.1); Sodium Level 139 mmol/L (136-145)
[2020-12-04] MEDS: ALBUTEROL 2.5 MG/3 ML NEB SOL NEB PRN (04:52)
[2020-12-04] MEDS ORDERED: ALBUTEROL 2.5 MG/3 ML NEB SOL ONE (05:10)
[2020-12-04 05:55] LABS: Urine Appearance CLOUDY (Clear); Urine Bilirubin NEGATIVE (Negataive); Urine Blood 3+ (Negative); Urine Color YELLOW (Yellow); Urine Glucose NEGATIVE (Negative); Urine Protein TRACE (Negative); Urine Specific Gravity 1.025 (1.005-1.030); Urine pH 6.5 (5.0-7.0)
[2020-12-04 05:56] LABS: Urine Microscopic Reflex ORDER UMIC
[2020-12-04 06:05] LABS: Urine Bacteria <20 /HPF (<20); Urine RBC 20-50 /HPF (NONE SEEN); Urine Urothelial Cells <5 /HPF (NONE SEEN)
--- NOTE | 2020-12-04 07:30 | RAD REPORT ---
EXAM DESCRIPTION: RAD - Chest Single View - 12/04/2020 6:19 am CLINICAL HISTORY: COVID, hypoxia COMPARISON: Portable December 02 TECHNIQUE: AP portable chest image was obtained 12/04/2020 6:19 am . FINDINGS: Lung volumes are low. The mild bilateral pulmonary opacification has not changed. Heart an d vasculature are stable. No progressive chest findings. No pneumothorax is present. Costophrenic ang le blunting could be from small pleural effusions or artifacts of portable imaging. No acute bony abn ormality seen. No acute aortic findings suspected. IMPRESSION: Stable chest from December 02.
[2020-12-04] MEDS ORDERED: THIAMINE 200 MG/2 ML INJ ONE (08:20)
[2020-12-04] MEDS ORDERED: ASCORBIC ACID 500 MG TABLET ONE ×3 (08:20→15:39)
[2020-12-04] MEDS ORDERED: FAMOTIDINE 20 MG TAB ONE ×2 (08:20→09:05)
[2020-12-04] MEDS ORDERED: VITAMIN D 1000 UNIT TAB ONE (08:20)
[2020-12-04] MEDS ORDERED: METHYLPREDNISOLONE 125 MG INJ ONE ×2 (08:20→14:34)
[2020-12-04] MEDS ORDERED: ENOXAPARIN 40 MG/0.4 ML SQ ONE (08:21)
[2020-12-04] MEDS: ENOXAPARIN 40 MG/0.4 ML SQ SCH (08:33)
[2020-12-04] MEDS: GUAIFENESIN 600 MG SA TAB PO SCH ×2 (08:39→21:23)
[2020-12-04] MEDS: VITAMIN D 1000 UNIT TAB PO SCH (08:39)
[2020-12-04] MEDS: ASCORBIC ACID 500 MG TABLET PO SCH ×4 (08:39→21:16)
[2020-12-04] MEDS: METHYLPREDNISOLONE 125 MG INJ IV SCH ×3 (08:40→21:14)
[2020-12-04] MEDS: THIAMINE 200 MG/2 ML INJ IVP SCH ×2 (08:40→21:15)
[2020-12-04] MEDS: FAMOTIDINE 20 MG TAB PO SCH ×2 (08:47→21:16)
[2020-12-04] MEDS: POTASSIUM CL SA 10 MEQ TAB PO SCH (08:48)
[2020-12-04] MEDS ORDERED: POTASSIUM CL SA 10 MEQ TAB PO ONE (09:08)
[2020-12-04] MEDS: ACETAMINOPHEN 500 MG TAB PO PRN ×2 (12:12→21:15)
[2020-12-04] MEDS ORDERED: ACETAMINOPHEN 500 MG TAB ONE ×2 (12:26→12:27)
--- NOTE | 2020-12-04 12:58 | P.PN ---
Subjective Date of Service: 12/04/20 Chief Complaint: Hypoxia, COVID-19 pneumonia Subjective: Improving (Patient is still complaining of some coughing spells oxygenation requirements are declining) Review of Systems General: Weakness Respiratory: Shortness of Breath Physical Examination - Vital Signs Temperature: 100.0 F Blood Pressure: 114/71 Pulse: 97 Respirations: 22 Pulse Ox (%): 92 Assessment & Plan - Problems (Diagnosis) (1) 2019-nCoV acute respiratory disease Current Visit: Yes Status: Acute Plan: Patient is 25 years of age admitted with respiratory failure from sifuentes virus IV increase the dose of for steroids oxygen requirements are declining labs reviewed anti coagulated with Xarelto
[2020-12-04] MEDS ORDERED: REMDESIVIR (EUA) 200 MG in NA CHLORIDE 0.9% 250 ML IV ONE (13:30)
[2020-12-04] MEDS: RIVAROXABAN 15 MG TABLET PO SCH (17:17)
--- NOTE | 2020-12-04 17:44 | P.PN ---
Subjective Date of Service: 12/04/20 Chief Complaint: Hypoxia, COVID-19 pneumonia Subjective: Worsening (more hypoxic, now on HFNC, nursing reports drops significantly and slower to improve - mainly after coughing episodes) Review of Systems 10-point ROS is otherwise unremarkable Physical Examination - Vital Signs Temperature: 100.2 F Blood Pressure: 126/65 Pulse: 85 Respirations: 27 Pulse Ox (%): 94 Assessment & Plan Physician Review Additional Text: Physical Exam Gen: moderate distress HEENT: normal conjunctiva, HFNC in place CV: RRR, no murmur, occasional HR spikes to 100-110 Pulm: tachypneic, on HFNC Abd: soft, NTND Ext: no edema/rash Neuro: AAOx3, normal affect Problem List Acute hypoxemic respiratory failure secondary to COVID-19 pneumonia Asthma -increase IV Solumedrol, vitamin supplementation, albuterol; s/p ivermectin -wean O2 as needed -CT with moderate b/l opacities, negative PE, continue anticoagulation -worse again today, pulm consulted -sputum culture sent -CXR unchanged today -remdesevir per pulm VTE: Xarelto Code: full dispo: worsening again today, if improves / stable, anticipate dc home in 24-48 hrs, will need home O2 Time Spent Managing Pts Care (In Minutes): 35
[2020-12-05 06:22] LABS: ALT/SGPT 31 U/L (12-78); AST/SGOT 14 U/L (15-37); Albumin 3.1 g/dL (3.4-5.0); Alkaline Phosphatase 50 U/L (45-117); BUN Blood Urea Nitrogen 13 mg/dL (7-18); Bicarbonate 29 mmol/L (21-32); Bilirubin Direct 0.2 mg/dL (0-0.2); Bilirubin Total 0.6 mg/dL (0.2-1.0); Ferritin 83.1 ng/mL (8-388); Glucose Level 135 mg/dL (74-106); Potassium 4.1 mmol/L (3.5-5.1); Protein, Total 7.9 g/dL (6.4-8.2); Sodium Level 147 mmol/L (136-145)
[2020-12-05] MEDS: VITAMIN D 1000 UNIT TAB PO SCH (08:41)
[2020-12-05] MEDS: METHYLPREDNISOLONE 125 MG INJ IV SCH ×3 (08:41→20:18)
[2020-12-05] MEDS: THIAMINE 200 MG/2 ML INJ IVP SCH ×2 (08:41→20:18)
[2020-12-05] MEDS: POTASSIUM CL SA 10 MEQ TAB PO SCH (08:42)
[2020-12-05] MEDS: FAMOTIDINE 20 MG TAB PO SCH ×2 (08:42→20:17)
[2020-12-05] MEDS: D5 0.45 NS 1,000 ML IV SCH (08:42)
[2020-12-05] MEDS: ASCORBIC ACID 500 MG TABLET PO SCH ×4 (08:42→20:19)
[2020-12-05] MEDS: GUAIFENESIN 600 MG SA TAB PO SCH ×2 (08:59→20:18)
[2020-12-05] MEDS ORDERED: REMDESIVIR (EUA) 100 MG in NA CHLORIDE 0.9% 250 ML IV SCH (09:00)
[2020-12-05] MEDS ORDERED: DIPHENHYDRAMINE 12.5MG/5ML LIQ PO ONE (11:00)
--- NOTE | 2020-12-05 12:05 | P.PN ---
Subjective Date of Service: 12/05/20 Chief Complaint: Hypoxia, COVID-19 pneumonia Subjective: Worsening (Patient is not doing well still requiring very high concentrations of oxygen) Review of Systems General: Weakness Respiratory: Shortness of Breath Physical Examination - Vital Signs Temperature: 99.5 F Blood Pressure: 135/80 Pulse: 84 Respirations: 22 Pulse Ox (%): 91 Assessment & Plan - Problems (Diagnosis) (1) 2019-nCoV acute respiratory disease Current Visit: Yes Status: Acute Plan: Respiratory failure condition worsening had IV Actemra prone positioning labs reviewed mild hypernatremia
--- NOTE | 2020-12-05 16:15 | P.PN ---
Subjective Date of Service: 12/05/20 Chief Complaint: Hypoxia, COVID-19 pneumonia Subjective: Other (worsening hypoxia, but patient reports feeling better, now on HFNC, requriing more oxygen supplementation. otherwise denies n/v/d, no abdominal pain, no dysuria/diarrhea) Review of Systems 10-point ROS is otherwise unremarkable Physical Examination - Vital Signs Temperature: 99.5 F Blood Pressure: 115/62 Pulse: 78 Respirations: 22 Pulse Ox (%): 93 Assessment & Plan Physician Review Additional Text: Physical Exam Gen: NAD, on HFNC HEENT: normal conjunctiva, HFNC in place CV: RRR, no murmur Pulm: tachypneic, on HFNC, crackles at bases Abd: soft, NTND Ext: no edema. b/l erythematous rash on arms MSK: no joint tenderness Neuro: AAOx3, normal affect, moves extremities 11/26 str Problem List Acute hypoxemic respiratory failure secondary to COVID-19 pneumonia Asthma -increased IV Solumedrol, vitamin supplementation, albuterol; s/p ivermectin -remdesevir started on 12/04, patient seemed to notice rash after receiving mornign medicatiosn / 2nd dose of remdesevir -will dc remdesevir, give benadryl, no swelling of neck/airway -pulm following -CT with moderate b/l opacities, negative PE, continue anticoagulation -sputum culture sent -CXR unchanged VTE: Xarelto Code: full dispo: needing more O2, cultures pending, do not suspect bacterial infection, denies urinary symptoms as well Time Spent Managing Pts Care (In Minutes): 35
[2020-12-05] MEDS ORDERED: TOCILIZUMAB 800 MG in NA CHLORIDE 0.9% 60 ML IV ONE (17:00)
[2020-12-05] MEDS: RIVAROXABAN 15 MG TABLET PO SCH (17:48)
[2020-12-05] MEDS: BENZONATATE 100 MG CAP PO PRN (20:18)
[2020-12-06] MEDS: D5 0.45 NS 1,000 ML IV SCH (03:52)
[2020-12-06 04:54] LABS: Absolute Lymphocytes (CBC) 1.3 K/uL (0.7-4.9); Basophils % 0.1 % (0-1.3); Hematocrit 40.2 % (36.0-45.0); Lymphocytes % 11.6 % (15.3-44.8); MPV 8.2 fL (7.6-11.3); RBC Red Blood Cell Count 4.69 M/uL (3.86-4.86)
[2020-12-06 05:15] LABS: ALT/SGPT 24 U/L (12-78); AST/SGOT 12 U/L (15-37); Albumin 2.9 g/dL (3.4-5.0); Alkaline Phosphatase 49 U/L (45-117); BUN Blood Urea Nitrogen 14 mg/dL (7-18); Bicarbonate 26 mmol/L (21-32); Bilirubin Direct 0.1 mg/dL (0-0.2); Bilirubin Total 0.5 mg/dL (0.2-1.0); Ferritin 94.8 ng/mL (8-388); Glucose Level 146 mg/dL (74-106); Potassium 3.9 mmol/L (3.5-5.1); Protein, Total 7.5 g/dL (6.4-8.2); Sodium Level 140 mmol/L (136-145)
[2020-12-06] MEDS: BENZONATATE 100 MG CAP PO PRN (06:17)
--- NOTE | 2020-12-06 07:36 | RAD REPORT ---
EXAM DESCRIPTION: Priscilla Single View12/06/2020 6:46 am CLINICAL HISTORY: Chest pain. Hypoxia COMPARISON: December 04, 2020 FINDINGS: [id number] bilateral pulmonary opacities without significant change. Heart remains e nlarged IMPRESSION: No change in the bilateral pneumonia
[2020-12-06] MEDS: VITAMIN D 1000 UNIT TAB PO SCH (08:48)
[2020-12-06] MEDS: METHYLPREDNISOLONE 125 MG INJ IV SCH (08:48)
[2020-12-06] MEDS: THIAMINE 200 MG/2 ML INJ IVP SCH (08:49)
[2020-12-06] MEDS: FAMOTIDINE 20 MG TAB PO SCH ×2 (08:49→20:30)
[2020-12-06] MEDS: GUAIFENESIN 600 MG SA TAB PO SCH ×2 (08:49→20:30)
[2020-12-06] MEDS: ASCORBIC ACID 500 MG TABLET PO SCH ×3 (08:49→17:13)
[2020-12-06] MEDS: POTASSIUM CL SA 10 MEQ TAB PO SCH (08:49)
[2020-12-06] MEDS: GUAIFENESIN/CODEINE 5ML UCUP PO PRN ×2 (10:15→18:21)
--- NOTE | 2020-12-06 10:19 | P.PN ---
Subjective Date of Service: 12/06/20 Chief Complaint: Hypoxia, COVID-19 pneumonia Subjective: Improving (oxygen requirement improving, still on HFNC, feeling better today. ambulated to bedside commode, coughing episodes slightly improved) Review of Systems 10-point ROS is otherwise unremarkable Physical Examination - Vital Signs Temperature: 97.6 F Blood Pressure: 126/78 Pulse: 60 Respirations: 24 Pulse Ox (%): 98 Assessment & Plan Physician Review Additional Text: Physical Exam Gen: NAD, on HFNC HEENT: normal conjunctiva, HFNC in place CV: RRR, no murmur Pulm: slightly tachypneic, on HFNC Abd: soft, NTND Ext: no edema. no rash MSK: no joint tenderness Neuro: AAOx3, normal affect, moves extremities 5/ str Problem List Acute hypoxemic respiratory failure secondary to COVID-19 pneumonia Asthma -continue high dose IV Solumedrol, vitamin supplementation, albuterol; s/p ivermectin, s/p actemra -remdesevir started on 12/04, patient seemed to notice rash after receiving morning medication and 2nd dose of remdesevir, -dc'd remdesevir, no rash today -pulm following -CT with moderate b/l opacities, negative PE, continue anticoagulation -sputum culture sent -denies urinary complaints, urine culture: mixed lan -CXR unchanged VTE: Xarelto Code: full dispo: wean O2, anticipate dc home in 2-3 days, with home O2 Time Spent Managing Pts Care (In Minutes): 40
--- NOTE | 2020-12-06 10:40 | P.PN ---
Subjective Date of Service: 12/06/20 Chief Complaint: Hypoxia, COVID-19 pneumonia Subjective: Improving (Patient is still showing significant improvement as not coughing) Review of Systems General: Weakness Respiratory: Shortness of Breath Physical Examination - Vital Signs Temperature: 97.6 F Blood Pressure: 126/78 Pulse: 60 Respirations: 24 Pulse Ox (%): 98 Assessment & Plan - Problems (Diagnosis) (1) 2019-nCoV acute respiratory disease Current Visit: Yes Status: Acute Plan: Respiratory failure significant improvement the to do prone positioning status Actemra chemistries lab work reviewed continue to titrate her O2 down chest x- ray no significant change Dc IV fluids and use dose of Solu-Medrol
[2020-12-06] MEDS: RIVAROXABAN 15 MG TABLET PO SCH (17:13)
[2020-12-06] MEDS: THIAMINE HCL 100 MG TABLET PO SCH (20:30)
[2020-12-06] MEDS ORDERED: METHYLPREDNISOLONE 125 MG INJ IV SCH (21:00)
[2020-12-06] MEDS ORDERED: DIPHENHYDRAMINE 50 MG/ML VIAL IV ONE (22:02)
[2020-12-07 05:09] LABS: Absolute Lymphocytes (CBC) 1.4 K/uL (0.7-4.9); Basophils % 0.1 % (0-1.3); Hematocrit 39.9 % (36.0-45.0); Lymphocytes % 16.3 % (15.3-44.8); MPV 7.9 fL (7.6-11.3); RBC Red Blood Cell Count 4.68 M/uL (3.86-4.86)
[2020-12-07] MEDS: ASCORBIC ACID 500 MG TABLET PO SCH ×5 (05:21→23:53)
[2020-12-07 05:38] LABS: ALT/SGPT 29 U/L (12-78); AST/SGOT 15 U/L (15-37); Albumin 2.9 g/dL (3.4-5.0); Alkaline Phosphatase 46 U/L (45-117); BUN Blood Urea Nitrogen 15 mg/dL (7-18); Bicarbonate 25 mmol/L (21-32); Bilirubin Direct 0.2 mg/dL (0-0.2); Bilirubin Total 0.7 mg/dL (0.2-1.0); C-Reactive Protein 9.41 mg/L (<3.00); Ferritin 79.7 ng/mL (8-388); Glucose Level 130 mg/dL (74-106); Protein, Total 7.3 g/dL (6.4-8.2); Sodium Level 138 mmol/L (136-145)
[2020-12-07] MEDS ORDERED: predniSONE 20 MG TAB PO SCH (08:00)
[2020-12-07] MEDS: GUAIFENESIN 600 MG SA TAB PO SCH ×2 (08:36→20:43)
[2020-12-07] MEDS: VITAMIN D 1000 UNIT TAB PO SCH (08:36)
[2020-12-07] MEDS: FAMOTIDINE 20 MG TAB PO SCH ×2 (08:36→20:44)
[2020-12-07] MEDS: POTASSIUM CL SA 10 MEQ TAB PO SCH (08:36)
[2020-12-07] MEDS: THIAMINE HCL 100 MG TABLET PO SCH ×2 (08:37→20:44)
--- NOTE | 2020-12-07 09:10 | P.PN ---
Subjective Date of Service: 12/07/20 Chief Complaint: Hypoxia, COVID-19 pneumonia Subjective: Improving (oxygen requirement improving. cough improving, ambulates to bedside commode, brief desaturatation but returns quickly on HFNC. Had b/l redness to upper arms shortly after receiving solumedrol last night, resolved) Review of Systems 10-point ROS is otherwise unremarkable Physical Examination - Vital Signs Temperature: 97 F Blood Pressure: 112/66 Pulse: 62 Respirations: 23 Pulse Ox (%): 95 Assessment & Plan Physician Review Additional Text: Physical Exam Gen: NAD, sitting in bed HEENT: normal conjunctiva, HFNC in place CV: RRR, no murmur Pulm: nonlabored respirations on HFNC Abd: soft, NTND Ext: no edema. no rash MSK: no joint tenderness Neuro: AAOx3, normal affect, moves extremities / str Problem List Acute hypoxemic respiratory failure secondary to COVID-19 pneumonia Asthma -vitamin supplementation, albuterol; s/p ivermectin, s/p actemra -remdesevir started on 12/04, patient seemed to notice rash after receiving morning medication and 2nd dose of remdesevir, so was discontinued -overnight developed similar rash but less severe after receiving solumedrol, change to PO Prednisone 40mg BID for now, eval for any reaction, erythema resolved this morning -pulm following -CT with moderate b/l opacities, negative PE, continue anticoagulation -CXR unchanged -sputum culture sent -denies urinary complaints, urine culture: mixed lan VTE: Xarelto Code: full dispo: wean O2, anticipate dc home in ~2 days, when stable on 4L NC, will need home O2 Time Spent Managing Pts Care (In Minutes): 35
[2020-12-07] MEDS: predniSONE 20 MG TAB PO SCH (17:10)
[2020-12-07] MEDS: RIVAROXABAN 15 MG TABLET PO SCH (17:10)
[2020-12-08 05:20] LABS: Absolute Lymphocytes (CBC) 1.9 K/uL (0.7-4.9); Hematocrit 39.9 % (36.0-45.0); Lymphocytes % 21.6 % (15.3-44.8); MPV 7.9 fL (7.6-11.3); RBC Red Blood Cell Count 4.68 M/uL (3.86-4.86)
[2020-12-08] MEDS: ASCORBIC ACID 500 MG TABLET PO SCH ×3 (05:25→11:32)
[2020-12-08 06:01] LABS: ALT/SGPT 27 U/L (12-78); AST/SGOT 13 U/L (15-37); Albumin 2.9 g/dL (3.4-5.0); Alkaline Phosphatase 46 U/L (45-117); BUN Blood Urea Nitrogen 13 mg/dL (7-18); Bicarbonate 27 mmol/L (21-32); Bilirubin Direct 0.2 mg/dL (0-0.2); Bilirubin Total 0.7 mg/dL (0.2-1.0); C-Reactive Protein 4.94 mg/L (<3.00); Ferritin 75.8 ng/mL (8-388); Glucose Level 115 mg/dL (74-106); Potassium 3.9 mmol/L (3.5-5.1); Sodium Level 138 mmol/L (136-145)
[2020-12-08] MEDS: GUAIFENESIN 600 MG SA TAB PO SCH (07:54)
[2020-12-08] MEDS: VITAMIN D 1000 UNIT TAB PO SCH (07:54)
[2020-12-08] MEDS: POTASSIUM CL SA 10 MEQ TAB PO SCH (07:54)
[2020-12-08] MEDS: predniSONE 20 MG TAB PO SCH (07:54)
[2020-12-08] MEDS: THIAMINE HCL 100 MG TABLET PO SCH (07:54)
[2020-12-08] MEDS: FAMOTIDINE 20 MG TAB PO SCH (07:55)
--- NOTE | 2020-12-08 08:57 | P.DS ---
Admission Date: 12/03/20 Discharge Date: 12/08/20 Disposition: ROUTINE DISCHARGE Discharge Condition: GOOD Reason for Admission: Hypoxia, COVID-19 pneumonia Consultations: Pulmonology - Dr. Shearer Procedures: CXR (12/02): Mild bilateral pulmonary opacities probably pneumonia CTA Chest (12/02): No pulmonary emboli identified. Moderate severity bilateral COVID-19 pneumonia. CXR (12/04): Stable chest from December 02. CXR (12/06): No change in the bilateral pneumonia Problem List Acute hypoxemic respiratory failure secondary to COVID-19 pneumonia Asthma Brief History of Present Illness: 25yo F, PMH: asthma, recently diagnosed with COVID-19 pneumonia, presents to ED due to worsening dyspnea on exertion. She was recently diagnosed in ED 2 days ago and discharged home with prednisone, ivermectin, albuterol inhaler, tessalon perles. She noted worsening SpO2 down to 84% at home with minimal exertion. Denies nausea/vomiting/diarrhea, no chest pain, no edema. Labwork rather unremarkable in ED. CXR with b/l opacitices consistent with COVID-19 pneumonia. SpO2 down to 86% with minimal ambulation in the ED. Hospital Course: Treated with IV steroids, vitamin supplementation, Xarelto, Ivermectin, and Actemra. She required up to 100% FiO2 of HFNC. She improved and was breathing comfortably on 2L NC on day of discharge. On hospital day 2 she developed a erythematous rash on b/l upper arms after receiving AM doses. It was thought to be due to the Remdesevir, so she only received 2 doses. The following day she developed the rash again (milder), after receiving IV solumedrol. Discharged home with O2. Follow up with Dr. Shearer in 1 week. Vital Signs/Physical Exam: Physical Exam Gen: NAD, sitting in bed HEENT: normal conjunctiva CV: RRR, no murmur Pulm: nonlabored respirations on 2L NC Abd: soft, NTND Ext: no edema. no rash MSK: no joint tenderness Neuro: AAOx3, normal affect, moves extremities 5/5 str Temp Pulse Resp BP Pulse Ox 96.9 F 57 22 H 107/63 96 12/08/20 04:00 12/08/20 04:00 12/08/20 04:00 12/08/20 04:00 12/08/20 04:00 Laboratory Data at Discharge: WBC 8.60 K/uL (4.3-10.9) 12/08/20 04:35 Hgb 13.5 g/dL (12.0-15.0) 12/08/20 04:35 Hct 39.9 % (36.0-45.0) 12/08/20 04:35 Plt Count 296 K/uL (152-406) 12/08/20 04:35 PT 13.5 SECONDS (9.5-12.5) H 12/02/20 09:22 INR 1.17 12/02/20 09:22 APTT 24.6 SECONDS (24.3-36.9) 12/02/20 09:22 Sodium 138 mmol/L (136-145) 12/08/20 04:35 Potassium 3.9 mmol/L (3.5-5.1) 12/08/20 04:35 BUN 13 mg/dL (7-18) 12/08/20 04:35 Creatinine 0.50 mg/dL (0.55-1.3) L 12/08/20 04:35 Glucose 115 mg/dL (74-106) H 12/08/20 04:35 Magnesium 2.5 mg/dL (1.8-2.4) H 12/04/20 02:37 Total Bilirubin 0.7 mg/dL (0.2-1.0) 12/08/20 04:35 AST 13 U/L (15-37) L 12/08/20 04:35 ALT 27 U/L (12-78) 12/08/20 04:35 Alkaline Phosphatase 46 U/L (45-117) 12/08/20 04:35 Lipase 122 U/L (73-393) 12/02/20 09:22 Home Medications: RX: Ondansetron [Zofran (Odt)*] 4 mg PO Q12H PRN 12/02/20 RX: Benzonatate [Tessalon Perle*] 100 mg PO TID PRN 7 Days #21 cap 12/08/20 RX: Cholecalciferol (Vitamin D3) [Vitamin D 1000 Iu Tab*] 4,000 unit PO DAILY 30 Days #120 tab 12/08/20 RX: Rivaroxaban [Xarelto*] 15 mg PO DAILY AT SUPPER 30 Days #30 tablet 12/08/20 RX: predniSONE [Prednisone*] 40 mg PO SEECOM #21 tab 12/08/20 New Medications: RX: predniSONE [Prednisone*] 40 mg PO SEECOM #21 tab RX: Benzonatate [Tessalon Perle*] 100 mg PO TID PRN 7 Days #21 cap PRN Reason: Cough RX: Cholecalciferol (Vitamin D3) [Vitamin D 1000 Iu Tab*] 4,000 unit PO DAILY 30 Days #120 tab RX: Rivaroxaban [Xarelto*] 15 mg PO DAILY AT SUPPER 30 Days #30 tablet Physician Discharge Instructions: You were diagnosed with COVID-19 pneumonia. You improved with oxygen, steroids, and vitamin supplementation. You are discharged with 2 more weeks of steroids, blood thinner (xarelto), and vitamin D. Please call Dr. Shearer's office to schedule a follow up appointment in ~1 week. Continue oxygen at home at 2 liters per minute, and titrate to keep your oxygen saturation > 90% Diet: Regular Activity: Ad mark Followup: NONE,NONE [Primary Care Provider] - Time spent managing pt's care (in minutes): 40
[2020-12-08 11:14] VITALS: BP 128/78
[2020-12-08 12:08] VITALS: O2SAT 96
[2020-12-08 12:52] VITALS: TEMP 97.4
== END 2020-12-08 12:20 | disposition home or self-care (01) | DRG 177 ==
LOC: ER 08:40 → ERHOLD 12:35 → OBSVTOIN 12-03 13:02 → 3RD-ICU 12-04 19:36
PROVIDERS: ADMIT Hospitalist; ATTEND Hospitalist
PROC: 5A09557 Assistance with Respiratory Ventilation, Greater than 96 Consecutive Hours, Continuous Positive Airway Pressure (ICD-10-PCS; 2020-12-03)
PROC: XW033E5 Introduction of Remdesivir Anti-infective into Peripheral Vein, Percutaneous Approach, New Technology Group 5 (ICD-10-PCS; principal; 2020-12-04)
DX: U07.1 COVID-19 (principal); J12.82 Pneumonia due to coronavirus disease 2019; J96.01 Acute respiratory failure with hypoxia; E87.0 Hyperosmolality and hypernatremia; J45.909 Unspecified asthma, uncomplicated; Z79.899 Other long term (current) drug therapy; Z79.52 Long term (current) use of systemic steroids
CPT/HCPCS: 36415; 71045; 71275; 80048; 80053; 80076; 81003; 81015; 82728; 82947; 83605; 83690; 83735; 83880; 84132; 84145; 84484; 85025; 85379; 85610; 85730; 86140; 87040; 87070; 87086; 87088; 87205; 93005; 94002; 94003; 94010; 94640; 94760; 96361; 96374; 96375; 99284; 99285; G0378; J1650; J2405; J2920; J2930; J3262; J3411; J7030; J7050; J7512; J7799; Q0163; Q9967